=== PATIENT | male | born 1945 | race Asian ===

== ENCOUNTER 2018-04-20 10:46 | Inpatient (IN) | payer OTHER ==
[~2018-04-20] VITALS: Ht 154.9 cm; Wt 76.7 kg
[~2018-04-20 10:46] MED LIST: ALBU18HF2 IH; ALLO100T PO; AMI2 PO; ASPI-1159 PO; ATOR40TA70 MT; CARV12.545 PO; LOSA25TA12 PO; MOME13HF INH; OMEG-34 PO; SITA25TA3 MT; TAMS0.4C31 PO; TIOT18CA3 IH; VITA400T9 PO
[2018-04-20] MEDS ORDERED: ALBUTEROL (0.083%) 2.5MG/3ML NEB HHN STA (11:22)
[2018-04-20] MEDS ORDERED: BENZONATATE 100MG CAPSULE PO ONE (11:30)
[2018-04-20 11:51] LABS: BASOPHILS % 0.4 % (0.0-2.0); EOSINOPHILS % 0.1 % (0.0-5.0); HEMATOCRIT. 32.9 % (42.0-52.0); HEMOGLOBIN. 11.1 g/dL (14.0-18.0); LYMPHOCYTES % 17.6 % (20.0-50.0); MEAN CORPUSCULAR HEMOGLOBIN 35.5 pg (28.0-32.0); MEAN CORPUSCULAR VOLUME 105.5 fL (80.0-94.0); MEAN PLATELET VOLUME 8.5 fl (7.4-10.4); MONOCYTES % 9.1 % (2.0-8.0); NEUTROPHILS % 72.8 % (40.0-76.0); PLATELET 111 x1000/uL (130-400); RED BLOOD CELL COUNT 3.12 mill/uL (4.7-6.1); RED CELL DISTRIBUTION WIDTH 15.8 % (11.6-14.6)
[2018-04-20 11:57] LABS: CHLORIDE 115 mEq/L (98-107)
[2018-04-20 11:58] LABS: INR 1.1; PROTHROMBIN TIME 10.8 sec (9.1-11.1)
[2018-04-20] MEDS ORDERED: ASPIRIN 325MG EC TABLET PO ONE (12:45)
[2018-04-20] MEDS ORDERED: ENOXAPARIN 80MG/0.8ML SYR SUBCUT ONE (13:00)
[2018-04-20 13:01] LABS: CLARITY URINE CLEAR (CLEAR); COLOR URINE YELLOW (YELLOW); KETONES URINE NEGATIVE (NEGATIVE); LEUKOCYTE ESTERASE URINE NEGATIVE (NEGATIVE); NITRITE URINE NEGATIVE (NEGATIVE); OCCULT BLOOD URINE NEGATIVE (NEGATIVE); PROTEIN URINE 1+ (NEGATIVE); SPECIFIC GRAVITY URINE 1.015 (1.005-1.030); UROBILINOGEN URINE 0.2 E.U./dL (0.2-1.0)
[2018-04-20] MEDS: NITROGLYCERIN OINT 1GM/INCH UDPKT TD SCH ×2 (15:07→21:08)
[2018-04-20 15:24] VITALS: BP 136/52
[2018-04-20 15:29] VITALS: BP 136/52
[2018-04-20 16:00] VITALS: BP 138/48
[2018-04-20] MEDS ORDERED: ONDANSETRON HCL 4MG/2ML INJ IV PRN (17:00)
[2018-04-20] MEDS ORDERED: DOCUSATE SODIUM 100MG CAPSULE PO PRN (17:00)
[2018-04-20] MEDS ORDERED: MAGNESIUM/ALUMINUM HYDROXIDE/SIMETHICONE 30ML UDC PO PRN (17:00)
[2018-04-20] MEDS: LOSARTAN POTASSIUM 25 MG TABLET PO SCH (17:30)
[2018-04-20] MEDS: AMIODARONE HCL 200 MG TABLET PO SCH (17:35)
[2018-04-20] MEDS: CARVEDILOL 12.5MG TABLET PO SCH (17:35)
[2018-04-20] MEDS: MONTELUKAST SODIUM 10MG TABLET PO SCH (17:35)
[2018-04-20 20:00] VITALS: BP 148/46
[2018-04-20] MEDS: BUDESONIDE 0.5MG/2ML NEB HHN SCH (20:52)
[2018-04-20] MEDS: IPRATROPIUM/ALBUTEROL 0.5-3(2.5)MG/3ML NEB HHN SCH (20:52)
[2018-04-20] MEDS ORDERED: OSELTAMIVIR 75MG CAPSULE PO SCH (21:00)
[2018-04-20] MEDS: ATORVASTATIN CALCIUM 40MG TABLET PO SCH (21:07)
[2018-04-20] MEDS: OSELTAMIVIR 30MG CAPSULE PO SCH (21:07)
[2018-04-20] MEDS: ACETAMINOPHEN 325MG TABLET PO PRN (21:08)
[2018-04-20] MEDS: GUAIFENESIN/DM 600MG/30MG ER TAB 12HR PO PRN (21:08)
[2018-04-21] VITALS: BP 136/52
[2018-04-21] MEDS: IPRATROPIUM/ALBUTEROL 0.5-3(2.5)MG/3ML NEB HHN SCH ×6 (00:39→20:32)
[2018-04-21 04:00] VITALS: BP 125/74
[2018-04-21] MEDS: HYDROCODONE/ACETAMINOPHEN 5/325MG TABLET PO PRN ×2 (04:45→20:40)
[2018-04-21] MEDS: NITROGLYCERIN OINT 1GM/INCH UDPKT TD SCH ×3 (05:36→21:03)
[2018-04-21 07:42] LABS: BASOPHILS % 0.7 % (0.0-2.0); EOSINOPHILS % 0.3 % (0.0-5.0); HEMATOCRIT. 32.9 % (42.0-52.0); HEMOGLOBIN. 10.8 g/dL (14.0-18.0); LYMPHOCYTES % 16.8 % (20.0-50.0); MEAN CORPUSCULAR HEMOGLOBIN 34.7 pg (28.0-32.0); MEAN CORPUSCULAR VOLUME 105.5 fL (80.0-94.0); MEAN PLATELET VOLUME 8.9 fl (7.4-10.4); MONOCYTES % 8.1 % (2.0-8.0); NEUTROPHILS % 74.1 % (40.0-76.0); PLATELET 107 x1000/uL (130-400); RED BLOOD CELL COUNT 3.12 mill/uL (4.7-6.1); RED CELL DISTRIBUTION WIDTH 15.4 % (11.6-14.6)
[2018-04-21 08:00] VITALS: BP 114/39
[2018-04-21] MEDS: ASPIRIN 81MG EC TABLET PO SCH (08:33)
[2018-04-21] MEDS: LOSARTAN POTASSIUM 25 MG TABLET PO SCH (08:33)
[2018-04-21] MEDS: FISH OIL/OMEGA-3 FATTY ACIDS 1000MG CAPSULE PO SCH (08:33)
[2018-04-21] MEDS: OSELTAMIVIR 30MG CAPSULE PO SCH ×2 (08:33→20:41)
[2018-04-21] MEDS: ALLOPURINOL 100 MG TABLET PO SCH (08:34)
[2018-04-21] MEDS: CARVEDILOL 12.5MG TABLET PO SCH ×2 (08:34→17:18)
[2018-04-21] MEDS: BUDESONIDE 0.5MG/2ML NEB HHN SCH ×2 (08:36→20:32)
[2018-04-21] MEDS: AMIODARONE HCL 200 MG TABLET PO SCH (08:37)
[2018-04-21] MEDS: TAMSULOSIN HCL 0.4MG SR CAPSULE PO SCH (08:50)
[2018-04-21] MEDS ORDERED: ENOXAPARIN 40MG/0.4ML SYR SUBCUT SCH (09:00)
[2018-04-21 12:00] VITALS: BP 114/42
[2018-04-21] MEDS: BENZONATATE 100MG CAPSULE PO SCH ×2 (15:12→21:03)
[2018-04-21 16:00] VITALS: BP 124/45
[2018-04-21] MEDS: MONTELUKAST SODIUM 10MG TABLET PO SCH (17:18)
[2018-04-21 20:00] VITALS: BP 116/48
[2018-04-21] MEDS: GUAIFENESIN/DM 600MG/30MG ER TAB 12HR PO PRN (20:39)
[2018-04-21] MEDS: ATORVASTATIN CALCIUM 40MG TABLET PO SCH (20:39)
[2018-04-22] VITALS (7 sets, daily range): BP systolic 102–171; BP diastolic 36–92
[2018-04-22] MEDS: IPRATROPIUM/ALBUTEROL 0.5-3(2.5)MG/3ML NEB HHN SCH ×5 (00:58→16:38)
[2018-04-22] MEDS: NITROGLYCERIN OINT 1GM/INCH UDPKT TD SCH ×2 (06:00→14:00)
[2018-04-22] MEDS: BENZONATATE 100MG CAPSULE PO SCH ×2 (06:00→14:00)
[2018-04-22 06:58] LABS: BASOPHILS % 0.4 % (0.0-2.0); EOSINOPHILS % 1.9 % (0.0-5.0); HEMATOCRIT. 34.9 % (42.0-52.0); HEMOGLOBIN. 11.6 g/dL (14.0-18.0); LYMPHOCYTES % 22.6 % (20.0-50.0); MEAN CORPUSCULAR HEMOGLOBIN 35.3 pg (28.0-32.0); MEAN CORPUSCULAR VOLUME 106.2 fL (80.0-94.0); MEAN PLATELET VOLUME 8.8 fl (7.4-10.4); MONOCYTES % 8.9 % (2.0-8.0); NEUTROPHILS % 66.2 % (40.0-76.0); PLATELET 117 x1000/uL (130-400); RED BLOOD CELL COUNT 3.29 mill/uL (4.7-6.1); RED CELL DISTRIBUTION WIDTH 15.3 % (11.6-14.6)
[2018-04-22] MEDS: BUDESONIDE 0.5MG/2ML NEB HHN SCH (08:22)
[2018-04-22] MEDS: TAMSULOSIN HCL 0.4MG SR CAPSULE PO SCH (09:00)
[2018-04-22] MEDS: AMIODARONE HCL 200 MG TABLET PO SCH (09:00)
[2018-04-22] MEDS: OSELTAMIVIR 30MG CAPSULE PO SCH (09:00)
[2018-04-22] MEDS ORDERED: VITAMIN E ACETATE 400 UNITS CAPSULE PO SCH (09:00)
[2018-04-22] MEDS ORDERED: ENOXAPARIN 30MG/0.3ML SYR SUBCUT SCH (09:00)
[2018-04-22] MEDS: FISH OIL/OMEGA-3 FATTY ACIDS 1000MG CAPSULE PO SCH (10:55)
[2018-04-22] MEDS: ASPIRIN 81MG EC TABLET PO SCH (10:55)
[2018-04-22] MEDS: LOSARTAN POTASSIUM 25 MG TABLET PO SCH (10:55)
[2018-04-22] MEDS: ACETAMINOPHEN 325MG TABLET PO PRN (10:55)
[2018-04-22] MEDS: CARVEDILOL 12.5MG TABLET PO SCH ×2 (10:56→17:00)
[2018-04-22] MEDS: ALLOPURINOL 100 MG TABLET PO SCH (10:56)
[2018-04-22] MEDS ORDERED: OSEL30CA2 PO (14:55)
== END 2018-04-22 20:45 | disposition home or self-care (01) | DRG 190 ==
LOC: ER 10:46 → 7WST 12:47 → EDBEDREQSVC 12:56 → EDBEDREQ 12:56 → EDBEDREQTM 12:56 → ENRESERV 13:09
PROVIDERS: ADMIT Internal Medicine; ATTEND Internal Medicine
DX: I21.4 Non-ST elevation (NSTEMI) myocardial infarction (principal); J96.00 Acute respiratory failure, unspecified whether with hypoxia or hypercapnia; N17.9 Acute kidney failure, unspecified; Z79.82 Long term (current) use of aspirin; J44.9 Chronic obstructive pulmonary disease, unspecified; J10.1 Influenza due to other identified influenza virus with other respiratory manifestations; I27.20 Pulmonary hypertension, unspecified; N18.9 Chronic kidney disease, unspecified; I13.0 Hypertensive heart and chronic kidney disease with heart failure and stage 1 through stage 4 chronic kidney disease, or unspecified chronic kidney disease; M94.0 Chondrocostal junction syndrome [Tietze]; I50.9 Heart failure, unspecified; D64.9 Anemia, unspecified; E11.22 Type 2 diabetes mellitus with diabetic chronic kidney disease; E78.00 Pure hypercholesterolemia, unspecified; E78.5 Hyperlipidemia, unspecified; M25.552 Pain in left hip; E87.5 Hyperkalemia; I07.1 Rheumatic tricuspid insufficiency; I25.10 Atherosclerotic heart disease of native coronary artery without angina pectoris; I35.8 Other nonrheumatic aortic valve disorders; M10.9 Gout, unspecified; Z87.891 Personal history of nicotine dependence; Z95.1 Presence of aortocoronary bypass graft; Z95.5 Presence of coronary angioplasty implant and graft; Z79.51 Long term (current) use of inhaled steroids
CPT/HCPCS: 36415; 71045; 73502; 80048; 83605; 84145; 84484; 87804; 93005; 94640; 96372; 99291; J1650; J2405; J7611; J7620; J7626